=== PATIENT | female | born 1960 | race Caucasian/White ===

== ENCOUNTER 2017-12-18 18:25 | Emergency (ER) | payer OTHER ==
[~2017-12-18] VITALS: Ht 157.5 cm; Wt 86.2 kg
[2017-12-18] MEDS ORDERED: SIMVASTATIN10 MG PO (18:42)
[2017-12-18] MEDS ORDERED: NORCO 5-325 TA1 EAC1 PO (21:29)
[2017-12-18 22:10] VITALS: BP 117/72
== END 2017-12-18 22:11 | disposition still patient (30) ==
LOC: M.ERS 18:25
DX: S42.211A Unspecified displaced fracture of surgical neck of right humerus, initial encounter for closed fracture (principal); F17.200 Nicotine dependence, unspecified, uncomplicated; W01.0XXA Fall on same level from slipping, tripping and stumbling without subsequent striking against object, initial encounter; Y93.89 Activity, other specified; Y92.89 Other specified places as the place of occurrence of the external cause; Y99.8 Other external cause status